=== PATIENT | male | born 2000 | race Caucasian/White ===

== ENCOUNTER 2021-03-18 16:41 | Emergency (ER) | payer OTHER ==
[2021-03-18 17:03] VITALS: BP 113/67; PULSE 55; TEMP 97.6; BMI 25.7
== END 2021-03-18 18:01 | disposition home or self-care (01) ==
LOC: JER 16:41
DX: J40 Bronchitis, not specified as acute or chronic (principal)
CPT/HCPCS: 71046-TC-FY; 87804; 99284-25; C9803; U0003; U0005